=== PATIENT | female | born 1980 | race Caucasian/White ===

== ENCOUNTER 2017-07-17 14:53 | Outpatient (CLI) | payer MEDICAID ==
[2017-07-17] MEDS: TERBUTALINE 1 MG/ML INJ SC (16:30)
[2017-07-17] MEDS: LACTATED RINGER'S 1,000 ML IV (16:30)
[2017-07-17] MEDS: NIFEdipine 10 MG CAP PO (18:37)
[2017-07-17] MEDS: BETAMET NA PHOS/AC(6 MG/ML) 5ML INJ IM (18:37)
== END 2017-07-17 20:10 | disposition home or self-care (01) ==
LOC: OBT 14:53 → L-D 15:01 → OBT 20:10
DX: O62.9 Abnormality of forces of labor, unspecified (principal); Z3A.27 27 weeks gestation of pregnancy
CPT/HCPCS: J0702

== ENCOUNTER 2017-07-18 18:37 | Outpatient (CLI) | payer MEDICAID ==
[2017-07-18] MEDS: BETAMET NA PHOS/AC(6 MG/ML) 5ML INJ IM (18:55)
== END 2017-07-18 20:40 | disposition home or self-care (01) ==
LOC: OBT 18:37 → L-D 18:38 → OBT 20:40
DX: O60.02 Preterm labor without delivery, second trimester (principal); O09.522 Supervision of elderly multigravida, second trimester; Z3A.28 28 weeks gestation of pregnancy
CPT/HCPCS: J0702

== ENCOUNTER 2017-08-30 10:40 | Outpatient (CLI) | payer MEDICAID ==
[2017-08-30 13:48] LABS: ADD UMIC NO; UR ASCORBIC ACID NEGATIVE (NEGATIVE); UR BILIRUBIN (Dip) NEGATIVE (NEGATIVE); UR BLOOD (Dip) NEGATIVE (NEGATIVE); UR CLARITY SLIGHTLY CLOUDY (CLEAR); UR COLOR YELLOW (YELLOW); UR GLUCOSE (Dip) NEGATIVE (NEGATIVE); UR KETONES (Dip) NEGATIVE (NEGATIVE); UR LEUKOCYTE ESTERASE (Dip) NEGATIVE Leu/ul (NEGATIVE); UR MUCUS FEW /HPF (NONE SEEN); UR NITRITE (Dip) NEGATIVE (NEGATIVE); UR RBC 1 /HPF (0-5); UR SPECIFIC GRAVITY (Dip) 1.019 (1.003-1.030); UR TOTAL PROTEIN (Dip) NEGATIVE (NEGATIVE); UR UROBILINOGEN (Dip) NEGATIVE (NEGATIVE); UR WBC 2 /HPF (0-5)
== END 2017-08-30 14:45 | disposition home or self-care (01) ==
LOC: OBT 10:40 → L-D 10:41 → OBT 14:45
DX: O62.9 Abnormality of forces of labor, unspecified (principal); O24.419 Gestational diabetes mellitus in pregnancy, unspecified control; O09.523 Supervision of elderly multigravida, third trimester; Z3A.34 34 weeks gestation of pregnancy
CPT/HCPCS: 76818; 81001; 81003; 87086

== ENCOUNTER 2017-09-27 20:28 | Inpatient (IN) | payer MEDICAID ==
[2017-09-27] MEDS ORDERED: METHYLERGONOVINE 0.2 MG INJ IM (21:30)
[2017-09-27] MEDS ORDERED: BUTORPHANOL 2 MG INJ IV (21:30)
[2017-09-27] MEDS ORDERED: LACTATED RINGER'S 1,000 ML IV (21:30)
[2017-09-27] MEDS ORDERED: OXYTOCIN 30 UNITS/LR 500 ML IV ×2 (21:30)
[2017-09-27] MEDS ORDERED: MISOPROSTOL 200 MCG TAB PR (21:30)
[2017-09-27] MEDS ORDERED: CARBOPROST 250 MCG INJ IM (21:30)
[2017-09-27] MEDS ORDERED: IBUPROFEN 600 MG TAB PO (21:30)
[2017-09-27 22:19] LABS: ADD UMIC YES; UR ASCORBIC ACID NEGATIVE (NEGATIVE); UR BACTERIA FEW /HPF (NONE SEEN); UR BILIRUBIN (Dip) NEGATIVE (NEGATIVE); UR BLOOD (Dip) 1+ mg/dL (NEGATIVE); UR CLARITY CLEAR (CLEAR); UR COLOR STRAW (YELLOW); UR GLUCOSE (Dip) NEGATIVE (NEGATIVE); UR KETONES (Dip) NEGATIVE (NEGATIVE); UR LEUKOCYTE ESTERASE (Dip) NEGATIVE Leu/ul (NEGATIVE); UR NITRITE (Dip) NEGATIVE (NEGATIVE); UR RBC 0 /HPF (0-5); UR SPECIFIC GRAVITY (Dip) 1.005 (1.003-1.030); UR TOTAL PROTEIN (Dip) NEGATIVE (NEGATIVE); UR UROBILINOGEN (Dip) NEGATIVE (NEGATIVE); UR WBC 1 /HPF (0-5)
[2017-09-27 22:45] LABS: RUPTURE FETAL MEMBRANES POSITIVE (NEGATIVE)
[2017-09-27 23:20] LABS: ADD MAN DIFF? NO
[2017-09-27 23:23] LABS: BASOPHILS % 0.4 % (0.0-2.0); EOSINOPHILS # 0.1 10^3/ul (0.0-0.5); EOSINOPHILS % 1.4 % (0.0-7.0); HEMATOCRIT 36.1 % (37.0-47.0); HEMOGLOBIN 12.4 g/dl (12.0-16.0); IMMATURE GRANS #M 0.09 10^3/ul; IMMATURE GRANS % (M) 1.1 %; LYMPHOCYTES # 1.8 10^3/ul (0.8-2.9); LYMPHOCYTES % 20.8 % (15.0-51.0); MEAN CORPUSCULAR HEMOGLOBIN 29.3 pg (29.0-33.0); MEAN CORPUSCULAR HGB CONC 34.3 g/dl (32.0-37.0); MEAN CORPUSCULAR VOLUME 85.3 fl (82.0-101.0); MEAN PLATELET VOLUME 11.9 fl (7.4-10.4); MONOCYTE # 0.7 10^3/ul (0.3-0.9); MONOCYTES % 8.6 % (0.0-11.0); NEUTROPHIL # 5.8 10^3/ul (1.6-7.5); NEUTROPHILS % 67.7 % (39.0-77.0); PLATELET COUNT 193 10^3/UL (140-415); RED BLOOD COUNT 4.23 10^6/ul (4.20-5.40); RED CELL DISTRIBUTION WIDTH 14.4 % (11.5-14.5)
[2017-09-27 23:23] LABS: WHITE BLOOD COUNT 8.6 10^3/ul (4.8-10.8)
[2017-09-27] MEDS: LACTATED RINGER'S 1,000 ML IV* (23:39)
[2017-09-27 23:41] LABS: GLUCOSE 99 mg/dl (70-220)
[2017-09-28] MEDS: AMPICILLIN 2 GM/NS (PMX) 100 ML IV
[2017-09-28 00:12] LABS: HEPATITIS B SURFACE ANTIGEN NEGATIVE (NEGATIVE)
[2017-09-28] MEDS: AMPICILLIN 1 GM/NS (PMX) 50 ML IV ×3 (04:00→11:52)
[2017-09-28] MEDS: LACTATED RINGER'S 1,000 ML IV* ×2 (08:18→17:32)
[2017-09-28] MEDS: OXYTOCIN 30 UNITS/LR 500 ML IV ×2 (10:06→13:41)
[2017-09-28 10:58] LABS: RAPID PLASMA REAGIN NONREACTIVE (NR)
[2017-09-28] MEDS: LIDOCAINE 1% (MPF) 30 ML INJ INJ (13:48)
[2017-09-28] MEDS ORDERED: ZOLPIDEM 5 MG TAB PO (15:30)
[2017-09-28] MEDS ORDERED: DEXTROSE 50% 50 ML SYRINGE IV ×2 (15:30)
[2017-09-28] MEDS ORDERED: DIBUCAINE 1% 30 GM OINT PR (15:30)
[2017-09-28] MEDS ORDERED: GLUCOSE GEL 15 GRAM TUBE PO ×2 (15:30)
[2017-09-28] MEDS ORDERED: HYDROCODONE/APAP (5/325) TAB PO (15:30)
[2017-09-28] MEDS ORDERED: OXYTOCIN 30 UNITS/LR 500 ML IV (15:30)
[2017-09-28] MEDS ORDERED: GLUCOSE GEL 15 GRAM TUBE BUCCAL (15:30)
[2017-09-28] MEDS ORDERED: GLUCAGON 1 MG INJ IM (15:30)
[2017-09-28] MEDS ORDERED: CARBOPROST 250 MCG INJ IM (15:30)
[2017-09-28] MEDS ORDERED: MISOPROSTOL 200 MCG TAB PR (15:30)
[2017-09-28] MEDS ORDERED: METHYLERGONOVINE 0.2 MG INJ IM (15:30)
[2017-09-28] MEDS: LANOLIN 7 GM TUBE TOP (15:42)
[2017-09-28] MEDS: WITCH HAZEL/GLYCERIN PAD PR (15:42)
[2017-09-28] MEDS: BENZOCAINE 20% 56 ML SPRAY TOP (15:42)
[2017-09-28] MEDS: IBUPROFEN 600 MG TAB PO ×2 (17:32→23:41)
[2017-09-28] MEDS: metFORMIN (XR) 500 MG TAB PO (18:00)
[2017-09-28] MEDS: HYDROCODONE/APAP (5/325) TAB PO (18:10)
[2017-09-28] MEDS: ACCU-CHEK XX (20:05)
[2017-09-28] MEDS: MAGNESIUM HYDROXIDE 30ML CUP PO (21:27)
[2017-09-28] MEDS: SENNA/DOCUSATE NA (8.6MG/50MG) TAB PO (21:27)
[2017-09-29] MEDS: IBUPROFEN 600 MG TAB PO ×4 (05:51→23:53)
[2017-09-29 06:45] LABS: ADD MAN DIFF? NO
[2017-09-29 06:47] LABS: WHITE BLOOD COUNT 10.4 10^3/ul (4.8-10.8)
[2017-09-29 06:47] LABS: BASOPHILS % 0.4 % (0.0-2.0); EOSINOPHILS # 0.1 10^3/ul (0.0-0.5); EOSINOPHILS % 0.6 % (0.0-7.0); HEMATOCRIT 30.3 % (37.0-47.0); HEMOGLOBIN 10.2 g/dl (12.0-16.0); IMMATURE GRANS #M 0.06 10^3/ul; IMMATURE GRANS % (M) 0.6 %; LYMPHOCYTES # 1.8 10^3/ul (0.8-2.9); LYMPHOCYTES % 16.8 % (15.0-51.0); MEAN CORPUSCULAR HEMOGLOBIN 28.7 pg (29.0-33.0); MEAN CORPUSCULAR HGB CONC 33.7 g/dl (32.0-37.0); MEAN CORPUSCULAR VOLUME 85.1 fl (82.0-101.0); MEAN PLATELET VOLUME 11.2 fl (7.4-10.4); MONOCYTE # 0.8 10^3/ul (0.3-0.9); MONOCYTES % 7.6 % (0.0-11.0); NEUTROPHIL # 7.7 10^3/ul (1.6-7.5); PLATELET COUNT 170 10^3/UL (140-415); RED BLOOD COUNT 3.56 10^6/ul (4.20-5.40); RED CELL DISTRIBUTION WIDTH 14.6 % (11.5-14.5)
[2017-09-29] MEDS: ACCU-CHEK XX ×4 (08:27→20:12)
[2017-09-29] MEDS: metFORMIN (XR) 500 MG TAB PO ×2 (08:48→17:58)
[2017-09-29] MEDS: SENNA/DOCUSATE NA (8.6MG/50MG) TAB PO ×2 (08:48→21:24)
[2017-09-29] MEDS: MAGNESIUM HYDROXIDE 30ML CUP PO ×2 (08:48→21:24)
[2017-09-30] MEDS: IBUPROFEN 600 MG TAB PO ×2 (06:06→11:34)
[2017-09-30] MEDS: ACCU-CHEK XX ×2 (07:30→10:05)
[2017-09-30] MEDS: MEASLES,MUMPS,RUBELLA VACCINE INJ SC* (08:05)
[2017-09-30] MEDS: DIPHTH/TET/ACEL PERTUSS (ADULT) 0.5 ML VIAL IM* (08:05)
[2017-09-30] MEDS: VARICELLA VACCINE LIVE/PF 1,350 UNIT/0.5 ML ML SC* (08:05)
[2017-09-30] MEDS: SENNA/DOCUSATE NA (8.6MG/50MG) TAB PO (08:41)
[2017-09-30] MEDS: metFORMIN (XR) 500 MG TAB PO (08:41)
[2017-09-30] MEDS: MAGNESIUM HYDROXIDE 30ML CUP PO (08:41)
== END 2017-09-30 13:09 | disposition home or self-care (01) | DRG 775 ==
LOC: OBT 20:28 → PP1 09-28 14:47 → L-D 20:30 → OBT 21:47 → L-D 21:27
PROC: 10E0XZZ Delivery of Products of Conception, External Approach (ICD-10-PCS; principal; 2017-09-28)
PROC: 0UQMXZZ Repair Vulva, External Approach (ICD-10-PCS; 2017-09-28)
PROC: 3E033VJ Introduction of Other Hormone into Peripheral Vein, Percutaneous Approach (ICD-10-PCS; 2017-09-28)
DX: O24.429 Gestational diabetes mellitus in childbirth, unspecified control (principal); O70.0 First degree perineal laceration during delivery; Z3A.38 38 weeks gestation of pregnancy; Z37.0 Single live birth
CPT/HCPCS: 76815; 81001; 82947; 82962; 84112; 85025; 85610; 85730; 86592; 86850; 86900; 86901; 87340